=== PATIENT | female | born 1935 | race Caucasian/White ===

== ENCOUNTER 2017-02-08 22:54 | Emergency (ER) | payer OTHER ==
[~2017-02-08] VITALS: Ht 157.5 cm; Wt 89.5 kg
[~2017-02-08 22:54] MED LIST: ACET-1325 PO; ASPI325T PO; ATRO1SOL13 OPR; CIME1TAB7 PO; KETO0.5S33 OPR; LORA-741 PO; MCR/40125 PO; PRED1SUS3 OPR; TIMO0.2528 OPR; [UNRECOGNIZED DRUG - CODE] OPR
[2017-02-08 23:00] VITALS: TEMP 36.8; Ht 157.5 cm; Wt 89.5 kg
[2017-02-08] MEDS ORDERED: HYDROCODONE/ACETAMOPHEN 5/325MG TAB PO STA (23:21)
--- NOTE | 2017-02-08 23:30 | EMERGENCY ROOM VISIT NOTE ---
History Report prepared by Kelvin: Marianna Malone Under the Supervision of: Dr. Julio César Cuellar D.O. First contact with patient: 23:15 Chief Complaint: LEG PAIN,LEG INJURY Stated Complaint: LEFT LEG PAIN AND SWELLING History of Present Illness The patient is an 81 year old female who presents to the Emergency Room with complaints of an episode of left leg pain starting a week ago. The patient states that she came to the ED because the pain was getting worse. She reports that she noticed it was swelling as well. She states that she thought it was because she was walking so much recently. She notes that it is worse when walking. She reports that she took Aleve with no relief. She denies ever having a blood clot. The patient currently rates her pain as a 6/10 in severity. Source of History: patient Onset: a week ago Position: leg (left) Symptom Intensity: 6/10 Timing: other (episode) Modifying Factors (Worsening): other (walking) Note: The patient complains of leg swelling. The patient denies ever having a blood clot. Review of Systems See HPI for pertinent positives and negatives. A total of ten systems were reviewed and were otherwise negative. Past Medical & Surgical Medical Problems: (1) Cataract (2) Left cataract (3) Right cataract Family History Patient reports no known family medical history. Social History Smoking Status: Never Smoker Marital Status: Housing Status: lives alone Occupation Status: retired Current/Historical Medications Scheduled PRN Aspirin Buffered (Joe Carb-Mag (Bufferin), 1 TAB PO DIRECTED PRN for Pain Cimetidine (Tagamet Hb), 200 MG PO BID PRN for Indigestion Hydrocodone/Acetaminophen 5MG/325MG ([place] 5MG/325MG), 1 TABLET PO Q6H PRN for Pain Naproxen (Aleve), 220 MG PO DIRECTED PRN for Pain Allergies Coded Allergies: No Known Allergies (Unverified , 02/09/17) Physical Exam Vital Signs Date Time Temp Pulse Resp B/P (MAP) Pulse Ox O2 Delivery O2 Flow Rate FiO2 02/09/17 00:42 78 18 236/136 98 Room Air 02/08/17 23:00 36.8 86 16 229/101 98 Room Air Physical Exam GENERAL: Awake, alert, well-appearing, in no distress HENT: Normocephalic, atraumatic. Oropharynx unremarkable. Opacified right eye. EYES: Normal conjunctiva. Sclera non-icteric. NECK: Supple. No nuchal rigidity. FROM. No JVD. RESPIRATORY: Clear to auscultation. CARDIAC: Regular rate, normal rhythm. Extremities warm and well perfused. Pulses equal. ABDOMEN: Soft, non-distended. No tenderness to palpation. No rebound or guarding. No masses. RECTAL: Deferred. MUSCULOSKELETAL: Chest examination reveals no tenderness. The back is symmetrical on inspection without obvious abnormality. There is no CVA tenderness to palpation. No joint edema. LOWER EXTREMITIES: Calves are equal size bilaterally and non-tender. No edema. No discoloration. LLE has mild tenderness. No significant swelling. Neurovascularly intact distally. NEURO: Normal sensorium. No sensory or motor deficits noted. SKIN: No rash or jaundice noted. Medical Decision & Procedures ER Provider Diagnostic Interpretation: US VENOUS LEFT LOWER EXTREMITY: Findings: No sonographic evidence for DVT within the left lower extremity. Radiologist: Renato Booth M.D. Study ready at 00:30 and initial results transmitted at 00:52. Medications Administered Medications (Trade) Dose Ordered Sig/Adriel Route Start Time Stop Time Status Last Admin Dose Admin Acetaminophen/ Hydrocodone Bitart ([place] 5/325 Tab) 1 tab NOW STAT PO 02/08/17 23:21 02/08/17 23:22 DC 02/09/17 00:41 1 TAB ED Course 2316: The patient was evaluated in room A10. A complete history and physical exam was performed. 2321: Ordered [place] 5/325 Tab 1 tab PO. 0055: I reevaluated the patient. Discussed results and discharge instructions: She verbalized understanding and agreement. The patient is ready for discharge. Medical Decision Differential diagnoses include sprain, strain, muscle cramp, DVT. Medication Reconcilliation Current Medication List: was personally reviewed by me Blood Pressure Screening Patient's blood pressure: Elevated blood pressure Blood pressure disposition: Referred to PCP Impression Primary Impression: Pain of left calf Scribe Attestation The scribe's documentation has been prepared under my direction and personally reviewed by me in its entirety. I confirm that the note above accurately reflects all work, treatment, procedures, and medical decision making performed by me. Departure Information Dispostion Home / Self-Care Prescriptions Hydrocodone/Acetaminophen 5MG/325MG ([place] 5MG/325MG) Tab 1 TABLET PO Q6H Y for Pain, #14 TAB Prov: Julio César Cuellar, DO 02/09/17 Referrals No Doctor, Assigned (PCP) Patient Instructions ED HTN Established, ED Muscle Pain Leg Cramps, My [facility]
[2017-02-09] MEDS ORDERED: NAPR1TAB9 PO (00:20)
[2017-02-09] MEDS ORDERED: HYDR-5688 PO (01:07)
[2017-02-09 01:28] VITALS: BP 240/94; PULSE 68; O2SAT 96
--- NOTE | 2017-02-09 05:50 | DIAGNOSTIC IMAGING REPORT ---
LEFT VENOUS DOPP LOWER EXT UNILAT CLINICAL HISTORY: pain pain. Edema. TECHNIQUE: Venous Doppler COMPARISON STUDY: None FINDINGS: Normal study IMPRESSION: Normal study The above report was generated using voice recognition software. It may contain grammatical, syntax or spelling errors. Electronically signed by: Cody Kaufman M.D. 02/09/2017 5:49 AM Dictated Date/Time: 02/09/2017 5:48 AM
== END 2017-02-09 01:35 | disposition home or self-care (01) ==
LOC: C.EDB 22:55 → C.EDA 02-09 01:35
DX: M79.662 Pain in left lower leg (principal); H26.9 Unspecified cataract

== ENCOUNTER 2017-02-14 11:29 | Emergency (ER) | payer OTHER ==
[~2017-02-14] VITALS: Ht 157.5 cm; Wt 88.2 kg
[~2017-02-14 11:29] MED LIST changes: -ACET-1325 PO; -ATRO1SOL13 OPR; +HYDR-5688 PO; -KETO0.5S33 OPR; -LORA-741 PO; -MCR/40125 PO; +NAPR1TAB9 PO; -PRED1SUS3 OPR; -TIMO0.2528 OPR; -[UNRECOGNIZED DRUG - CODE] OPR
[2017-02-14 11:35] VITALS: TEMP 37; Ht 157.5 cm; Wt 88.2 kg
[2017-02-14] MEDS ORDERED: OXYCODONE HCL IR 5 MG TAB (IMMEDIATE RELEASE) PO STA (12:05)
--- NOTE | 2017-02-14 12:41 | EMERGENCY ROOM VISIT NOTE ---
ED Visit Note First contact with patient: 11:50 The patient was seen and examined with Ulises Bo PA-C. I agree with the history, physical and findings. Please see the note for disposition and details.
--- NOTE | 2017-02-14 12:45 | DIAGNOSTIC IMAGING REPORT ---
LEFT FEMUR 4 VIEWS HISTORY: L posterior thigh pain COMPARISON: None. FINDINGS: There is no fracture or dislocation. No significant knee effusion. Medial superficial varicosities within the thigh. No radiopaque foreign bodies. Mild vascular calcifications. Calcification within the deep pelvis favors a uterine fibroid. IMPRESSION: No fractures within the left femur. Electronically signed by: Octaviano Duarte M.D. 02/14/2017 12:44 PM Dictated Date/Time: 02/14/2017 12:42 PM
[2017-02-14] MEDS ORDERED: AMLODIPINE BESYLATE 5 MG TAB PO ONE (14:15)
--- NOTE | 2017-02-14 14:32 | DIAGNOSTIC IMAGING REPORT ---
LEFT LOWER EXTREMITY VENOUS DOPPLER HISTORY: LEFT THIGH PAIN - R/O DVT COMPARISON STUDY: None. FINDINGS: There is normal compressibility, flow, and augmentation within the left lower extremity deep venous system. IMPRESSION: No DVT within the left lower extremity. Electronically signed by: Octaviano Duarte M.D. 02/14/2017 2:31 PM Dictated Date/Time: 02/14/2017 2:30 PM
[2017-02-14 14:50] VITALS: BP 200/80; PULSE 71; O2SAT 98
[2017-02-14] MEDS ORDERED: AMLO-114 PO (14:53)
[2017-02-14] MEDS ORDERED: OXYC1TAB3 PO (14:53)
--- NOTE | 2017-02-14 16:27 | EMERGENCY ROOM VISIT NOTE ---
History First contact with patient: 11:50 Chief Complaint: PAIN (GENERALIZED) Stated Complaint: L-KNEE/LEG PAIN History of Present Illness The patient is a 81 year old female who presents to the Emergency Room with complaints of left posterior thigh pain for the past 3 weeks. The patient reports that she was walking extensively at a yard sale that weekend. She has had persistent pain since that time. She was just here on 02/08/17 and had an ultrasound showing no evidence for deep vein thrombosis. The patient now rates her discomfort a 4 out of 10, worse into an 8 out of 10 with ambulation. She denies any paresthesias or numbness of the left extremity. She reports the area of swelling behind her right thigh that is tender to palpation. She denies any local contusion or injury to that site. Review of Systems 10 system review was performed and was negative except for pertinent positives and negatives as indicated in history of present illness Past Medical/Surgical History Medical Problems: (1) Cataract (2) Left cataract (3) Right cataract Family History Patient reports no known family medical history. Social History Smoking Status: Never Smoker Marital Status: Housing Status: lives alone Occupation Status: retired Current/Historical Medications Scheduled Amlodipine (Norvasc), 10 MG PO DAILY Scheduled PRN Aspirin Buffered (Joe Carb-Mag (Bufferin), 1 TAB PO DIRECTED PRN for Pain Cimetidine (Tagamet Hb), 200 MG PO BID PRN for Indigestion Hydrocodone/Acetaminophen 5MG/325MG ([place] 5MG/325MG), 1 TABLET PO Q6H PRN for Pain Naproxen (Aleve), 220 MG PO DIRECTED PRN for Pain Oxycodone Ir (Roxicodone Ir), 1-2 TAB PO Q4H PRN for Pain Physical Exam Vital Signs Date Time Temp Pulse Resp B/P (MAP) Pulse Ox O2 Delivery O2 Flow Rate FiO2 02/14/17 14:50 71 18 200/80 98 Room Air 02/14/17 13:09 72 18 148/84 98 Room Air 02/14/17 11:35 37.0 92 20 208/161 99 Room Air Physical Exam CONSTITUTIONAL: Healthy and well nourished. Alert and oriented X 3 with positive affect. Patient does not appear in any acute distress. HEENT: Normocephalic, atraumatic. Pupils equal, round and reactive. No conjunctival injection or scleral icterus. Right eye is opacified. NECK: Full active range of motion without discomfort. RESPIRATORY: Clear to auscultation bilaterally with no wheezing, crackles, rhonchi or stridor. CARDIOVASCULAR: Regular rate and rhythm with no murmurs, rubs or gallops. GASTROINTESTINAL: Bowel sounds present in all quadrants. Soft and nontender to palpation. MUSCULOSKELETAL: Examination of the left distal and posteromedial thigh shows a very prominent varicose vein without overriding erythema or ecchymosis. It is tender to palpation. She has no tenderness to palpation of the hamstrings. Range of motion of the knee does not worsen her discomfort. No joint effusion of the knee noted. Negative logroll. Negative straight leg raise. Pedal pulses are intact. INTEGUMENTARY: No rash or other significant dermatologic conditions noted. NEUROLOGIC: No focal neurologic deficits noted. Lower extremity is sensory intact. Medical Decision & Procedures ER Provider Diagnostic Interpretation: My interpretation of left femur x-rays does not show any underlying bony lesions or fracture. Radiologist report is as follows: LEFT FEMUR 4 VIEWS HISTORY: L posterior thigh pain COMPARISON: None. FINDINGS: There is no fracture or dislocation. No significant knee effusion. Medial superficial varicosities within the thigh. No radiopaque foreign bodies. Mild vascular calcifications. Calcification within the deep pelvis favors a uterine fibroid. IMPRESSION: No fractures within the left femur. Medications Administered Medications (Trade) Dose Ordered Sig/Adriel Route Start Time Stop Time Status Last Admin Dose Admin Oxycodone HCl (Roxicodone Immediate Rel Tab) 5 mg NOW STAT PO 02/14/17 12:05 02/14/17 12:07 DC 02/14/17 12:28 5 MG Amlodipine Besylate (Norvasc Tab) 10 mg NOW ONCE PO 02/14/17 14:15 02/14/17 14:16 DC 02/14/17 14:13 10 MG ED Course Patient history and physical exam were performed. Nurse's notes were reviewed. Vital signs were reviewed, showing a blood pressure of 208/161. I also reviewed documentation from the patient's last visit, showing that she also had a significantly elevated blood pressure of 236/136. She was instructed to follow-up with her family doctor for further blood pressure management as the patient does have a history of hypertension. The patient reports that she has not seen her family doctor in 3 months, nor has she taken any blood pressure medication that she ran out. When asked why she has not contacted her family doctor, she reports that she did not like her family doctor, therefore refused to go back. I offered to provide her with a prescription for hydrochlorothiazide, which is what she was taking/prescribed by her prior family doctor. She reports that the medicine did not do anything for her blood pressure, and declined this prescription. She has not tried to find another family doctor. Supposedly the patient went to the [facility] walk-in clinic since her last ER visit, and he told her to come to the emergency department for blood pressure treatment. The patient was transported here today via BLS ambulance, and reports that she lives alone and does not have a way to get back home. X-rays of the left femur were normal. The patient was advised that her pain is likely from a varicose vein. We know that her venous Doppler from one week ago did not show any underlying deep vein thrombosis. She was encouraged to apply heat and an Cedrick wrap to the thigh. I had our special education case manager talk with the patient regarding finding a PCP. The patient elected follow-up with Dr. Wise' s office. Our special education case manager will call the office tomorrow to set up an appointment. The correctional case records supervisor was also able to contact her sister to come apple picker the patient. The patient was also seen by Dr. Danielle, ED attending physician, who agrees with workup and plan of care. He did suggest repeating a venous ultrasound of the leg. When the sister got here, I spoke with her after receiving consent from the patient. I explained that we were going to repeat the ultrasound. The sister reported that she would go to the cafeteria and will be back in one hour. The patient then started to refuse ultrasound studies, stating that she wanted to leave to get her sister home because she should not be driving. Her nurse then reported that they were ready for her in ultrasound, and the patient reluctantly agreed to have an ultrasound performed. The ultrasound was normal. The patient was administered amlodipine 10 mg at the recommendation of Dr. Danielle, and will be provided a prescription for amlodipine daily 14 days. She also requested something for the pain, and was provided a prescription for OxyIR 5 mg. Her sales and support center agent will call her tomorrow after speaking with Dr. Wise 's office to schedule an appointment. She was instructed to return to the emergency department for any further concerns. The patient was happy with plan of care, voiced understanding of all discharge instructions, and rated her pain a 3 out of 10 at the conclusion of my exam. Medical Decision Patient's clinical exam finding is consistent with a varicosity that is tender to palpation. She has now had 2 normal venous ultrasound showing no evidence for underlying deep vein thrombosis. The patient has no clinical exam findings to suggest lumbar radiculitis. X-rays does not show any underlying bony lesions or fracture. I am most concerned about her hypertension. The patient will be started on amlodipine 10 mg daily, and has agreed to follow-up with Dr. Wise's office for further management. [facility] Drug Monitoring Program Search Results: patient reviewed within database, no issues identified Blood Pressure Screening Patient's blood pressure: Elevated blood pressure Blood pressure disposition: Referred to PCP Impression Primary Impression: Left posterior thigh varicosity Additional Impression: Hypertension Departure Information Prescriptions Oxycodone Ir (Roxicodone Ir) 5 Mg Tab 1-2 TAB PO Q4H Y for Pain, #24 TAB For Initial Treatment Prov: Rich Bo PA 02/14/17 Amlodipine (Norvasc) 10 Mg Tab 10 MG PO DAILY for 14 Days, #14 TAB Prov: Rich Bo PA 02/14/17 Referrals No Doctor, Assigned (PCP) Makenna Maradiaga PA-C Forms WORK / SCHOOL INSTRUCTIONS, HOME CARE DOCUMENTATION FORM, IMPORTANT VISIT INFORMATION Patient Instructions My [facility] Problem Qualifiers Additional Impression: Hypertension Hypertension type: essential hypertension Qualified Codes: I10 - Essential ( primary) hypertension
== END 2017-02-14 15:08 | disposition home or self-care (01) ==
LOC: EDBD 11:29 → C.EDC 11:32
DX: I83.812 Varicose veins of left lower extremity with pain (principal); I10 Essential (primary) hypertension; H26.9 Unspecified cataract

== ENCOUNTER 2018-12-26 15:48 | Inpatient (IN) ==
[2018-12-26] MEDS ORDERED: LISINOPRIL 20 MG TAB PO STA (16:51)
[2018-12-26] MEDS ORDERED: AMOXICILLIN/CLAVULANATE 875 MG TAB PO ONE (16:51)
[2018-12-26 17:23] LABS: Partial Thromboplastin Time 26.2 Seconds (21.0-31.0); Prothrombin Time 10.2 Seconds (9.0-12.0)
[2018-12-26 17:27] LABS: Albumin Level 4.1 gm/dl (3.4-5.0); BUN Creatinine Ratio 12.9 (10-20); Calcium 9.7 mg/dl (8.5-10.1); Creatinine Clr Calc Pharmacy 53.2 ml/min; Est GFR (Non-African American) 64.7; Magnesium 2.1 mg/dl (1.8-2.4); Potassium 3.7 mmol/L (3.5-5.1)
[2018-12-26] MEDS ORDERED: SODIUM CHLORIDE 0.65% NA SOLN 45 ML (OCEAN) ONE (17:40)
[2018-12-26 17:45] LABS: Basophils # (auto) 0.02 K/uL (0-0.2); Basophils % (auto) 0.3 %; Eosinophils % (auto) 2.5 %; Hematocrit (blood only) 43.4 % (37-47); Hemoglobin 15.2 g/dL (12.0-16.0); Immature Granulocytes # (auto) 0.01 K/uL (0.00-0.02); Immature Granulocytes % (auto) 0.1 %; Lymphocytes # (auto) 2.35 K/uL (1.2-3.4); Lymphocytes % (auto) 29.7 %; Mean Corpuscular Volume 84.9 fL (80-100); Mean Platelet Volume 10.3 fL (7.4-10.4); Monocytes # (auto) 0.63 K/uL (0.11-0.59); Neutrophils # (auto) 4.71 K/uL (1.4-6.5); Neutrophils % (auto) 59.4 %; Platelet Count 222 K/uL (130-400); RDW Coefficient of Variation 14.1 % (11.5-14.5); RDW Standard Deviation 43.5 fL (36.4-46.3); Red Blood Count 5.11 M/uL (4.2-5.4); White Blood Count 7.92 K/uL (4.8-10.8)
[2018-12-26 17:47] LABS: Albumin Globulin Ratio 0.9 (0.9-2); Bilirubin,Total 0.5 mg/dl (0.2-1); Globulin 4.6 gm/dl (2.5-4.0); Total Protein 8.7 gm/dl (6.4-8.2); Troponin I 0.063 ng/ml (0-0.045)
[2018-12-26] MEDS ORDERED: ASPIRIN CHEW 324 MG PO STA (17:55)
[2018-12-26 18:40] LABS: Creatine Kinase MB 1.5 ng/ml (0.5-3.6)
--- NOTE | 2018-12-26 20:10 | History & Physical Report ---
Date of Service December 26, 2018 Assessment & Plan (1) Hypertensive urgency: Has been off of medications x2 years Pt declined CT head in the ED Trop with mild elevation, likely demand ischemia RBBB on EKG Discusssed this with pt. She is agreeable to have another trop checked and to undergo ECHO. CK neg making [place] less likely Nicardipine drip in the ED, will continue Will need PCP for f/u (2) DVT prophylaxis: SCDs History of Present Illness Primary Care Provider: NO PCP 83 y/o F who came to the ED for elevated BP. Pt states that she goes to a [facility] where they check BP periodically. She states it was checked today and the man who checked it was very concerned about her BP reading. She states she does not know what the number were "because I don't go looking for trouble, so I don't care". She states that he advised her to go to the ED due to risk of stroke at that time but she declined. She states that after she got home, she became nervous about this because she lives alone and did not want to have a stroke with no one there. She states that her BP gets checked at the [facility] about once a month, but "I never listen to the numbers because I don't go looking for trouble". She thinks it may have been high in the past, but it was not as high as today. Pt states that she is supposed to be on medications for her BP, but stopped them about 2 years ago because "if it kills me, it kills me". She does not have a PCP. She states she has never been on medication for anything other than her BP. Pt states she has felt fine. No lightheadedness/dizziness. No falls. She has baseline vision issues due to some sort of complication from a R sided cataract removal, but this is no different than usual. Pt denies fever, SOB, chest pain, abd pain, n/v/c/d, LE pain or swelling. She has been eating without issue. Pt is a without children. She does have a sister who is 89 y/o, but she has many health issues herself. Pt refused CT head in the ED. "My head is fine. I don't want to look for trouble." Allergies Allergy/AdvReac Type Severity Reaction Status Date / Time No Known Allergies Allergy Unverified 12/26/18 17:39 Home Medications Home Medications Medication Instructions Recorded Confirmed Type aspirin 650 mg PO UD PRN 12/26/18 12/26/18 History cimetidine [Tagamet HB] 200 mg PO QID PRN 12/26/18 12/26/18 History vitamin E 400 unit PO DAILY 12/26/18 12/26/18 History Past Med/Surg History Medical History Hypertension (Chronic) Social History Preferred Language: Luxembourgish Feels Safe at Home: Yes Smoking Status: Never smoker Hx Alcohol Use: No Hx Substance Use: No Review of Systems Review of Systems: Pertinent positives and negatives reviewed in HPI--all others negative Physical Exam Constitutional: WD/WN, vitals as above Eyes: R eye is cloudy with decreased eye movements Neck: normal visual inspection and trachea midline Respiratory: normal respiratory effort, lungs clear to auscultation Cardiovascular: Rate/Rhythm: regular rate and regular rhythm Gastrointestinal (Abdomen): Inspection/Auscultation: abdomen not distended Percussion/Palpation: abdomen soft; abdomen nontender Musculoskeletal: Head/Neck/Chest: normocephalic and head atraumatic negative for edema, peripheral pulses intact Skin: no rashes, warm and dry Neurologic: awake; not confused Speech / Cognition: normal speech Psychiatric: Orientation: oriented x 3 and cooperative Eye Contact: good eye contact Pt is very blunt and straightforward in her discussion Results & Data Vital Signs (Past 12 Hours) Vital Signs Temp Pulse Pulse Resp BP BP Pulse Ox 12/26/18 19:45 75 20 139/76 96 12/26/18 19:36 78 18 202/137 H 98 12/26/18 19:17 76 18 173/81 H 97 12/26/18 18:58 74 20 210/106 H 97 12/26/18 18:25 79 18 233/114 H 12/26/18 17:31 74 15 249/127 H 12/26/18 17:30 74 24 12/26/18 17:15 73 16 12/26/18 17:00 97 H 26 H 12/26/18 16:49 86 19 12/26/18 16:43 88 19 12/26/18 16:10 37.4 C 88 20 224/129 H 98 ECG Findings: + RBBB Code Status & VTE Plan Code Status Full cardiac code, DNI--she wants no mechanical intervention, even short term intubation. "If I , I ." VTE Prophylaxis Plan VTE Prophylaxis will be ordered: Yes PG Care Time/CCT Total # of Minutes Spent Total Time Spent with Patient: Total time spent is greater than 50% in coordination of care (as documented) at patient's floor/unit and/or counseling patient:
[2018-12-26] MEDS ORDERED: ACETAMINOPHEN 325 MG TAB PO PRN (20:46)
[2018-12-26] MEDS ORDERED: ONDANSETRON INJ 2 MG/ML 2 ML VIAL IV PRN (20:46)
[2018-12-26] MEDS ORDERED: ASPIRIN 325 MG ECTAB PO PRN (20:46)
[2018-12-26] MEDS ORDERED: FAMOTIDINE 20 MG TAB PO PRN (20:46)
[2018-12-26] MEDS ORDERED: MAGNESIUM HYDROXIDE SUSP 30 ML UDC PO PRN (20:46)
--- NOTE | 2018-12-26 23:42 | Emergency Department Note ---
Entered by Venecia oPnd acting as a scribe for Juan Zambrano MD History of Present Illness General Chief complaint: Hypertension Stated complaint: HIGH BLOOD PRESSURE, REFERRED BY DR Alatorre Seen by Provider: 12/26/18 16:38 Source: patient History of Present Illness Provider complaint: hypertension Onset (ago): hour(s) ([employer]) Radiation: non-radiation Relieved By: + none Exacerbated By: + none Associated symptoms: + other (+dizziness); no headaches The patient is a 83 year old female who presents to the Emergency Room with co mplaints of hypertension. The patient states that she thinks she has a sinus infection. She reports that she has been dizzy on and off for the past several days, but is not currently. The patient states that she is concerned that she will have a stroke. The patient denies any headache. She notes that she lives alone. She states that she was on medication for her hypertension, but she states that she �quit�. The patient states that she was in the in ED recently for hypertension and did not take her hypertension medication after she was discharged. Home Medications Home Medications Medication Instructions Recorded Confirmed Type aspirin 650 mg PO UD PRN 12/26/18 12/26/18 History cimetidine [Tagamet HB] 200 mg PO QID PRN 12/26/18 12/26/18 History vitamin E 400 unit PO DAILY 12/26/18 12/26/18 History Allergies Allergy/AdvReac Type Severity Reaction Status Date / Time No Known Allergies Allergy Unverified 12/26/18 17:39 Past Med/Surg History Medical History Hypertension (Chronic) Social History Preferred Language: Puerto Rican Communication Ability: Effective Beliefs That Will Affect Care: None Current Living Situation: Alone Other Information That Helps Us Care for You: No Feels Safe at Home: Yes Smoking Status: Never smoker Hx Alcohol Use: No Hx Substance Use: No Review of Systems See HPI for pertinent positives & negatives. and A total of 10 systems reviewed and were otherwise negative Physical Exam Vital Signs Vital Signs - 24 hr 12/26/18 17:15 12/26/18 17:30 12/26/18 17:31 Pulse Rate 73 74 74 Pulse Rate [Finger] Respiratory Rate 16 24 15 Respiratory Effort / Characteristics Respiratory Depth Blood Pressure 249/127 H Blood Pressure [Left Arm] Blood Pressure Mean 167 Blood Pressure Mean [Left Arm] Pulse Oximetry Oxygen Delivery Method 12/26/18 18:25 12/26/18 18:58 12/26/18 19:17 Pulse Rate Pulse Rate [Finger] 79 74 76 Respiratory Rate 18 20 18 Respiratory Effort / Characteristics Non-Labored Respiratory Depth Normal Blood Pressure Blood Pressure [Left Arm] 233/114 H 210/106 H 173/81 H Blood Pressure Mean Blood Pressure Mean [Left Arm] 153 140 111 Pulse Oximetry 97 97 Oxygen Delivery Method Room Air Room Air 12/26/18 19:36 12/26/18 19:45 Pulse Rate Pulse Rate [Finger] 78 75 Respiratory Rate 18 20 Respiratory Effort / Characteristics Respiratory Depth Blood Pressure Blood Pressure [Left Arm] 202/137 H 139/76 Blood Pressure Mean Blood Pressure Mean [Left Arm] 158 97 Pulse Oximetry 98 96 Oxygen Delivery Method Room Air Room Air GENERAL: Awake, alert, well-appearing, in no acute distress HENT: Normocephalic, atraumatic. Oropharynx unremarkable. EYES: Normal conjunctiva. Sclera non-icteric. NECK: Supple. No nuchal rigidity. FROM. No JVD. RESPIRATORY: Clear to auscultation. CARDIAC: Regular rate, normal rhythm. Extremities warm and well perfused. Pulses equal. ABDOMEN: Soft, non-distended. No tenderness to palpation. No rebound or guarding. No masses. RECTAL: Deferred. MUSCULOSKELETAL: Chest examination reveals no tenderness. The back is symmetrical on inspection without obvious abnormality. There is no CVA tenderness to palpation. No joint edema. LOWER EXTREMITIES: Calves are equal size bilaterally and non-tender. No edema. No discoloration. NEURO: Normal sensorium. No sensory or motor deficits noted. SKIN: No rash or jaundice noted. Course 1641: The patient was evaluated in room A11A, and a complete history and physical examination were performed. 4: I reevaluated and updated the patient. She states that she does not want to stay here overnight and denies a CAT scan. 1950: I reviewed the patient's case with Dr. Askew- [facility] Hospitalist. She will evaluate the patient for further management Consultations Consultation #1: Dr. Waddell [facility] Hospitalist Time: 19:50 Administered Medications Labetalol HCl (Normodyne) 10 mg IV Q6H PRN PRN Reason: Blood Pressure - High Stop: 01/26/19 03:34 Last Admin: 12/27/18 04:13 Dose: 10 mg Documented by: [id number] Cosigned by: [id number] Lisinopril (Zestril) 10 mg PO QAM [facility] Stop: 01/26/19 08:59 Last Admin: 12/27/18 09:21 Dose: 10 mg Documented by: [id number] Vitamin E (Vitamin E) 400 units PO DAILY GERA Stop: 01/26/19 08:59 Last Admin: 12/27/18 08:30 Dose: 400 units Documented by: [id number] Discontinued Medications Amlodipine Besylate (Norvasc) 2.5 mg PO 0900 ONE Stop: 12/27/18 09:01 Last Admin: 12/27/18 09:20 Dose: 2.5 mg Documented by: [id number] Amoxicillin/Clavulanate Potassium (Augmentin 875mg) 1 tab PO NOW ONE Stop: 12/26/18 16:52 Last Admin: 12/26/18 16:56 Dose: 1 tab Documented by: [id number] Aspirin (Aspirin) 324 mg PO NOW STA Stop: 12/26/18 17:56 Last Admin: 12/26/18 18:02 Dose: 324 mg Documented by: [id number] Nicardipine HCl 25 mg/ Sodium (Chloride) 250 mls @ 50 mls/hr IV .Q5H [facility]; Protocol Stop: 01/25/19 16:44 Last Admin: 12/26/18 17:04 Dose: Not Given Documented by: [id number] Nicardipine HCl 25 mg/ Sodium (Chloride) 250 mls @ 50 mls/hr IV .Q5H [facility]; Pro tocol Stop: 01/25/19 17:59 Last Titration: 12/26/18 21:25 Dose: 0 mg/hr, 0 mls/hr Documented by: [id number] Titration: 12/26/18 18:55 Dose: 7.5 mg/hr, 75 mls/hr Documented by: [id number] Titration: 12/26/18 18:55 Dose: 10 mg/hr, 100 mls/hr Documented by: [id number] Admin: 12/26/18 18:11 Dose: 5 mg/hr, 50 mls/hr Documented by: [id number] Cosigned by: [id number] Lisinopril (Zestril) 20 mg PO NOW STA Stop: 12/26/18 16:52 Last Admin: 12/26/18 16:56 Dose: 20 mg Documented by: [id number] Miscellaneous (Order Awaiting Action) 1 ea N/A QS GERA Stop: 01/26/19 00:00 Last Admin: 12/27/18 01:20 Dose: Not Given Documented by: [id number] Sodium Chloride (Sullivan Nasal) 2 sprays NA NOW ONE Stop: 12/26/18 17:41 Last Admin: 12/26/18 18:55 Dose: Not Given Documented by: [id number] Medical Decision Making Differential Diagnosis Differential diagnosis: Etiologies such as benign hypertension, hypertensive emergency, cardiovascular pathology, pheochromocytoma, electrolyte abnormality, renal disease, endorgan damage, as well as others were entertained. Medical Records Attestation: I reviewed the patient's medical records. Home Medications Current Medication List: was personally reviewed by me Laboratory Data Attestation: I reviewed the patient's lab results. Result diagrams: 12/26/18 17:01 12/26/18 17:01 Lab Results 12/26/18 12/26/18 12/26/18 Range/Units 17:01 17:01 17:01 WBC 7.92 (4.8-10.8) K/uL RBC 5.11 (4.2-5.4) M/uL Hgb 15.2 (12.0-16.0) g/dL Hct 43.4 (37-47) % MCV 84.9 (80-100) fL MCH 29.7 (25-34) pg MCHC 35.0 (32-36) g/dL RDW Std Deviation 43.5 (36.4-46.3) fL RDW Coeff of Camille 14.1 (11.5-14.5) % Plt Count 222 (130-400) K/uL MPV 10.3 (7.4-10.4) fL Immature Gran % (Auto) 0.1 % Neut % (Auto) 59.4 % Lymph % (Auto) 29.7 % [place] % (Auto) 8.0 % Eos % (Auto) 2.5 % Baso % (Auto) 0.3 % Immature Gran # (Auto) 0.01 (0.00-0.02) K/uL Neut # (Auto) 4.71 (1.4-6.5) K/uL Lymph # (Auto) 2.35 (1.2-3.4) K/uL [place] # (Auto) 0.63 H (0.11-0.59) K/uL Eos # (Auto) 0.20 (0-0.5) K/uL Baso # (Auto) 0.02 (0-0.2) K/uL PT 10.2 (9.0-12.0) Seconds INR 1.0 (0.9-1.1) APTT 26.2 (21.0-31.0) Seconds PTT Ratio 1.0 Sodium 142 (136-145) mmol/L Potassium 3.7 (3.5-5.1) mmol/L Chloride 109 H (98-107) mmol/L Carbon Dioxide 26 (21-32) mmol/L Anion Gap 7.0 (3-11) BUN 11 (7-18) mg/dl Creatinine 0.84 (0.6-1.2) mg/dl Est Cr Clr Drug Dosing 53.2 ml/min Est GFR ( Amer) 75.0 Est GFR (Non-Af Amer) 64.7 BUN/Creatinine Ratio 12.9 (10-20) Glucose 122 H (70-99) mg/dl Calcium 9.7 (8.5-10.1) mg/dl Magnesium 2.1 (1.8-2.4) mg/dl Total Bilirubin 0.5 (0.2-1) mg/dl AST 52 H (15-37) U/L ALT 44 (12-78) U/L Alkaline Phosphatase 86 (45-117) U/L Total Creatine Kinase (26-192) U/L CK-MB (CK-2) (0.5-3.6) ng/ml CK/CKMB % Calc (0-3.0) Troponin I 0.063 H* (0-0.045) ng/ml Total Protein 8.7 H (6.4-8.2) gm/dl Albumin 4.1 (3.4-5.0) gm/dl Globulin 4.6 H (2.5-4.0) gm/dl Albumin/Globulin Ratio 0.9 (0.9-2) 12/26/18 Range/Units 17:01 WBC (4.8-10.8) K/uL RBC (4.2-5.4) M/uL Hgb (12.0-16.0) g/dL Hct (37-47) % MCV (80-100) fL MCH (25-34) pg MCHC (32-36) g/dL RDW Std Deviation (36.4-46.3) fL RDW Coeff of Camille (11.5-14.5) % Plt Count (130-400) K/uL MPV (7.4-10.4) fL Immature Gran % (Auto) % Neut % (Auto) % Lymph % (Auto) % [place] % (Auto) % Eos % (Auto) % Baso % (Auto) % Immature Gran # (Auto) (0.00-0.02) K/uL Neut # (Auto) (1.4-6.5) K/uL Lymph # (Auto) (1.2-3.4) K/uL [place] # (Auto) (0.11-0.59) K/uL Eos # (Auto) (0-0.5) K/uL Baso # (Auto) (0-0.2) K/uL PT (9.0-12.0) Seconds INR (0.9-1.1) APTT (21.0-31.0) Seconds PTT Ratio Sodium (136-145) mmol/L Potassium (3.5-5.1) mmol/L Chloride (98-107) mmol/L Carbon Dioxide (21-32) mmol/L Anion Gap (3-11) BUN (7-18) mg/dl Creatinine (0.6-1.2) mg/dl Est Cr Clr Drug Dosing ml/min Est GFR ( Amer) Est GFR (Non-Af Amer) BUN/Creatinine Ratio (10-20) Glucose (70-99) mg/dl Calcium (8.5-10.1) mg/dl Magnesium (1.8-2.4) mg/dl Total Bilirubin (0.2-1) mg/dl AST (15-37) U/L ALT (12-78) U/L Alkaline Phosphatase (45-117) U/L Total Creatine Kinase 57 (26-192) U/L CK-MB (CK-2) 1.5 (0.5-3.6) ng/ml CK/CKMB % Calc 2.6 (0-3.0) Troponin I (0-0.045) ng/ml Total Protein (6.4-8.2) gm/dl Albumin (3.4-5.0) gm/dl Globulin (2.5-4.0) gm/dl Albumin/Globulin Ratio (0.9-2) ECG Data Attestation: I personally reviewed and interpreted this ECG as follows: Indication: other (hypertension) Rate (beats per minute): 82 Rhythm: normal sinus Findings: + RBBB; no ST depression and no ST elevation Blood Pressure Blood Pressure Findings: Elevated blood pressure MDM Narrative This is an 83-year-old female who presents emergency department with complaints of pressure to her head. The patient is supposed to be taking blood pressure medication however reports that she does not have a primary care doctor and has not taken blood pressure medication in quite some time. She is convinced she has sinusitis. I strongly recommended a CAT scan of the head to rule out intracranial pathology however the patient is adamantly refusing. Because of the high blood pressure as well as her elevated troponin the patient was placed on a nicardipine drip. I did discuss the case with the hospitalist service who agreed to admit the patient. Impression & Plan Hypertensive urgency Critical Care Time Critical Care Time: Yes Total Critical Care Time: 30 I have personally spent 30 minutes of critical care time in the direct management of this patient. This includes bedside care, interpretation of diagnostic studies, and testing, discussion with consultants, patient, and family members, and other required patient management activities. This 30 minutes is in excess of all separately billable procedures. Discharge Plan Visit Data *Final* Discharge Date/Time: 12/26/18 20:35 Chief Complaint: Hypertension Stated Complaint: HIGH BLOOD PRESSURE, REFERRED BY ED Provider: Juan Zambrano Discharge Problem: Hypertensive urgency Patient Disposition: Admitted As Inpatient Discharge Instructions Interventions: ED Discharge Assessment Last Done: 12/26/18 20:35 The scribe's documentation has been prepared under my direction and personally reviewed by me in its entirety. I confirm that the note above accurately reflects all work, treatment, procedures, and medical decision making performed by me.
[2018-12-27] MEDS: LABETALOL HCL IV 5 MG/ML 20ML IV PRN (04:13)
[2018-12-27] MEDS: TOCOPHERYL, DL-ALPHA 400 UNITS CAP PO SCH (08:30)
[2018-12-27] MEDS ORDERED: AMLODIPINE BESYLATE 5 MG TAB PO ONE (09:00)
[2018-12-27] MEDS: LISINOPRIL 10 MG TAB PO SCH (09:21)
[2018-12-27] MEDS ORDERED: HydrALAZINE HCL 20 MG/ML VIAL IV STA (19:34)
[2018-12-27] MEDS ORDERED: AMLODIPINE BESYLATE 5 MG TAB PO SCH (21:00)
--- NOTE | 2018-12-27 22:56 | Hospitalist Progress Note ---
Date of Service December 27, 2018 Assessment & Plan (1) Hypertensive urgency: Has been off of medications x2 years Pt declined CT head in the ED Trop with mild elevation, likely demand ischemia RBBB on EKG Discusssed this with pt. She is agreeable to have another trop checked and to undergo ECHO. CK neg making [place] less likely Nicardipine drip in the ED, will continue Will need PCP for f/u 12/27 Nicardipine stopped Patient asymptomatic. Ordered lisinopril and amlodipine. will monitor. Had extensive discussion with patient regarding importance of continuing her medicine. Explained that the medicine she will bed discharged on will be lifelong. She will need to take it daily without trying to miss a dose. Discussed side effects and risks and benefits of medicine. (2) DVT prophylaxis: SCDs Spent 35 minutes in management of patient. Subjective Patient is a poor historian. She states she stopped taking her medicine because she felt like she did not need them. She no longer follows up with a PCP. She denies any nausea, or vomiting. Review of Systems Review of Systems: All systems reviewed & are unremarkable except as noted in HPI & below Physical Exam Physical Exam: Constitutional: WD/WN, vitals as above Eyes: R eye is cloudy with decreased eye movements Neck: normal visual inspection and trachea midline Respiratory: normal respiratory effort, lungs clear to auscultation Cardiovascular: Rate/Rhythm: regular rate and regular rhythm Gastrointestinal (Abdomen): Inspection/Auscultation: abdomen not distended Percussion/Palpation: abdomen soft; abdomen nontender Musculoskeletal: Head/Neck/Chest: normocephalic and head atraumatic negative for edema, peripheral pulses intact Skin: no rashes, warm and dry Neurologic: awake; not confused Speech / Cognition: normal speech Psychiatric: Orientation: oriented x 3 and cooperative Eye Contact: good eye contact Results & Data Vital Signs (Past 12 Hours) Vital Signs Temp Pulse Resp BP BP Pulse Ox 12/27/18 19:04 37.3 C 67 18 216/79 H 202/104 H 98 12/27/18 15:32 36.7 C 65 16 192/78 H 97 12/27/18 11:14 37.1 C 58 L 16 180/72 H 99 PG Care Time/CCT Total # of Minutes Spent Total Time Spent with Patient: Total time spent is greater than 50% in coordination of care (as documented) at patient's floor/unit and/or counseling patient:
[2018-12-28] MEDS: LABETALOL HCL IV 5 MG/ML 20ML IV PRN (03:57)
[2018-12-28] MEDS ORDERED: LORazepam 0.5 MG/1 ML VIAL IV PRN (05:11)
[2018-12-28] MEDS ORDERED: LORazepam 0.5 MG/1 ML VIAL IV STA (05:18)
[2018-12-28] MEDS: LISINOPRIL 10 MG TAB PO SCH (08:26)
[2018-12-28] MEDS: TOCOPHERYL, DL-ALPHA 400 UNITS CAP PO SCH (08:26)
[2018-12-28] MEDS ORDERED: hydroCHLOROthiazide 25 MG TAB PO STA (08:37)
[2018-12-29] MEDS ORDERED: hydroCHLOROthiazide 25 MG TAB PO SCH (09:00)
--- NOTE | 2019-01-04 20:44 | Discharge Summary ---
Date of Service December 28, 2018 Admission HPI Per Admitting Provider 83 y/o F who came to the ED for elevated BP. Pt states that she goes to a [facility] where they check BP periodically. She states it was checked today and the man who checked it was very concerned about her BP reading. She states she does not know what the number were "because I don't go looking for trouble, so I don't care". She states that he advised her to go to the ED due to risk of stroke at that time but she declined. She states that after she got home, she became nervous about this because she lives alone and did not want to have a stroke with no one there. She states that her BP gets checked at the [facility] about once a month, but "I never listen to the numbers because I don't go looking for trouble". She thinks it may have been high in the past, but it was not as high as today. Pt states that she is supposed to be on medications for her BP, but stopped them about 2 years ago because "if it kills me, it kills me". She does not have a PCP. She states she has never been on medication for anything other than her BP. Pt states she has felt fine. No lightheadedness/dizziness. No falls. She has baseline vision issues due to some sort of complication from a R sided cataract removal, but this is no different than usual. Pt denies fever, SOB, chest pain, abd pain, n/v/c/d, LE pain or swelling. She has been eating without issue. Pt is a without children. She does have a sister who is 89 y/o, but she has many health issues herself. Pt refused CT head in the ED. "My head is fine. I don't want to look for trouble." Principal Diagnosis Malignant hypertension Discharge Exam Constitutional: WD/WN, vitals as above Eyes: R eye is cloudy with decreased eye movements Neck: normal visual inspection and trachea midline Respiratory: normal respiratory effort, lungs clear to auscultation Cardiovascular: Rate/Rhythm: regular rate and regular rhythm Gastrointestinal (Abdomen): Inspection/Auscultation: abdomen not distended Percussion/Palpation: abdomen soft; abdomen nontender Musculoskeletal: Head/Neck/Chest: normocephalic and head atraumatic negative for edema, peripheral pulses intact Skin: no rashes, warm and dry Neurologic: awake; not confused Speech / Cognition: normal speech Psychiatric: Orientation: oriented x 3 and cooperative Eye Contact: good ey e contact Discharge Data Allergies Allergy/AdvReac Type Severity Reaction Status Date / Time No Known Allergies Allergy Unverified 12/26/18 17:39 Consultations 12/26/18 17:56 ED Decision to Admit Stat 12/26/18 20:46 Consult Case Management - Discharge Planning Routine Hospital Course (1) Hypertensive urgency: Has been off of medications x2 years Pt declined CT head in the ED Trop with mild elevation, likely demand ischemia RBBB on EKG Discusssed this with pt. She is agreeable to have another trop checked and to undergo ECHO. CK neg making [place] less likely Nicardipine drip in the ED, will continue Will need PCP for f/u 12/27 Nicardipine stopped Patient asymptomatic. Ordered lisinopril and amlodipine. will monitor. Had extensive discussion with patient regarding importance of continuing her medicine. Explained that the medicine she will bed discharged on will be lifelong. She will need to take it daily without trying to miss a dose. Discussed side effects and risks and benefits of medicine. 12/28 Had multiple discussions with patient. Patient wanted to leave. Her blood pressure was not adequately controlled. Patient though was going to leave AMA. I ordered a script as it would be dangerous for her to go off her Blood presure medicine. However, when I returned to her room, She had left already. (2) DVT prophylaxis: SCDs Total Time Total Time Spent Total Time Spent (In Minutes): 31 Total Time Includes: Examination of the Patient and Discharge Planning Discharge Plan Discharge Items Patient Disposition: Against Medical Advice Reason For Visit: MALIGNANT HTN Discharge Diagnosis: Uncontrolled Essential hypertension/ from not taking medicine Discharge Goals: Decrease discomfort Activity: Resume your previous activity Non-emergency contact: Primary Care Provider Call non-emergency contact if: you have any medication questions Follow-up/Referrals: PCP,NO [Primary Care Provider] - Diet: Regular Addtl Provider Instructions: You were found to have elevated blood pressure. This is likely from the fact that yo stopped taking your blood pressure medicine You need to continue taking these meds lifelong. If you stop abruptly, you can have rebound Hypertension and this could kill you. Prescriptions: New amlodipine [Norvasc] 5 mg Tablet 5 mg PO QPM Qty: 30 RF: 0 lisinopril 10 mg Tablet 10 mg PO QAM Qty: 30 RF: 0 hydrochlorothiazide 25 mg Tablet 12.5 mg PO QAM Qty: 30 RF: 0 metoprolol succinate 25 mg tablet extended release 24 hr 25 mg PO QPM Qty: 30 RF: 0 Continued cimetidine [Tagamet HB] 200 mg Tablet 200 mg PO QID PRN (Reason: Stomach Upset) RF: 0 vitamin E 400 unit Capsule 400 unit PO DAILY RF: 0 Discontinued aspirin 325 mg Tablet 650 mg PO UD PRN (Reason: Pain) RF: 0 Stand-Alone Forms: [facility] Discharge Orders: Discharge Order (Routine); Ordered 12/28/18 Ordered By: Bravo Cruz Admission Data Admit Date/Time: 12/26/18 20:03 Attending Provider: Bravo Cruz Admit Provider: Alessandra Askew Primary Care Provider: PCP,NO Service: Telemetry Other Interventions: Discharge Summary Assessment (RN) Last Done: 12/28/18 11:47 DC Date/Time DO NOT enter until pt leaves facility: 12/28/18 12:13
== END 2018-12-28 12:13 | disposition left against medical advice (07) | DRG 305 ==
LOC: ED 15:48 → SUATTDRO 20:03 → 2S 20:03
DX: I16.0 Hypertensive urgency; I45.10 Unspecified right bundle-branch block; I24.8 Other forms of acute ischemic heart disease

== ENCOUNTER 2019-03-01 11:10 | Inpatient (IN) ==
[2019-03-01] MEDS ORDERED: FAMOTIDINE 20MG IV PUSH 20 MG/5 ML SYR IV STA (11:28)
[2019-03-01] MEDS ORDERED: ACETAMINOPHEN 1,000 MG/100 ML VIAL IV STA (11:28)
[2019-03-01] MEDS ORDERED: SODIUM CHLORIDE 0.9% 500 ML IV SCH (11:30)
--- NOTE | 2019-03-01 11:43 | XRay Report ---
SINGLE VIEW CHEST CLINICAL HISTORY: Atypical chest pain. FINDINGS: An AP, portable, upright chest radiograph is obtained. No prior studies are available for c omparison at the time of dictation. The examination is degraded by portable technique and patient rot ation. The cardiomediastinal silhouette is unremarkable noting atherosclerotic calcification of the thoracic aorta. The lungs and pleural spaces are clear. No pneumothorax is seen. The skeletal structu res are osteopenic. The bony thorax is grossly intact. IMPRESSION: No active disease in the chest. Electronically signed by: Wes Luo M.D. 03/01/2019 11:42 AM
[2019-03-01 12:57] LABS: Hematocrit (blood only) 42.4 % (37-47); Hemoglobin 15.2 g/dL (12.0-16.0); Mean Corpuscular Hgb Conc 35.8 g/dL (32-36); Mean Platelet Volume 10.8 fL (7.4-10.4); Platelet Count 237 K/uL (130-400); RDW Coefficient of Variation 14.3 % (11.5-14.5); RDW Standard Deviation 43.9 fL (36.4-46.3); Red Blood Count 5.05 M/uL (4.2-5.4); White Blood Count 29.01 K/uL (4.8-10.8)
[2019-03-01 13:19] LABS: Basophils # (auto) 0.02 K/uL (0-0.2); Basophils % (auto) 0.1 %; Immature Granulocytes # (auto) 0.14 K/uL (0.00-0.02); Immature Granulocytes % (auto) 0.5 %; Lymphocytes # (auto) 2.02 K/uL (1.2-3.4); Monocytes # (auto) 1.62 K/uL (0.11-0.59); Monocytes % (auto) 5.6 %; Neutrophils # (auto) 25.21 K/uL (1.4-6.5); Neutrophils % (auto) 86.8 %
[2019-03-01 13:21] LABS: Alanine Aminotransferase 42 U/L (12-78); Aspartate Aminotransferase 43 U/L (15-37); BUN Creatinine Ratio 37.7 (10-20); Blood Urea Nitrogen 39 mg/dl (7-18); Calcium 8.9 mg/dl (8.5-10.1); Carbon Dioxide 27 mmol/L (21-32); Chloride 100 mmol/L (98-107); Creatinine Clr Calc Pharmacy 43.2 ml/min; Est GFR (African American) 59.3; Est GFR (Non-African American) 51.2; Glucose 138 mg/dl (70-99); Magnesium 2.9 mg/dl (1.8-2.4); Potassium 3.5 mmol/L (3.5-5.1); Sodium 136 mmol/L (136-145)
[2019-03-01 13:32] LABS: Albumin Globulin Ratio 0.6 (0.9-2); Alkaline Phosphatase 116 U/L (45-117); Bilirubin,Total 0.8 mg/dl (0.2-1); Globulin 4.8 gm/dl (2.5-4.0); Phosphorus 1.8 mg/dl (2.5-4.9); Total Protein 7.8 gm/dl (6.4-8.2); Troponin I < 0.015 ng/ml (0-0.045)
[2019-03-01] MEDS ORDERED: SODIUM CHLORIDE 0.9% 500 ML IV ONE (15:04)
[2019-03-01] MEDS ORDERED: POTASSIUM PHOS 3 MMOL/1 ML INFUSION IV STA (15:27)
[2019-03-01] MEDS ORDERED: POT PHOSPHATE MONOBASIC W/ SOD TAB PO STA (15:27)
[2019-03-01] MEDS ORDERED: POTASSIUM PHOSPHATE 9 MMOL in SODIUM CHLORIDE 0.9% 250 ML IV STA (15:30)
[2019-03-01 15:58] LABS: Appearance Urine Turbid (Clear); Bacteria Urine Automated 1+ (Negative); Blood Urine Negative (Negative); Epithelial Cell Urine Auto >30 /lpf (0-5); Glucose Urine UA Trace (Negative); Ketones Urine Trace (Negative); Leukocyte Esterase Urine 1+ (Negative); Nitrite Urine Positive (Negative); Protein Urine 1+ (Negative); Specific Gravity Urine 1.037 (1.000-1.030); Urobilinogen Urine Negative (Negative); WBC Urine Automated >30 /hpf (0-5)
[2019-03-01 16:00] LABS: Color Urine Amber
[2019-03-01 16:01] LABS: Bilirubin Urine Negative (Negative); Ictotest Urine Negative (Negative)
[2019-03-01] MEDS ORDERED: ONDANSETRON INJ 2 MG/ML 2 ML VIAL IV PRN (16:18)
[2019-03-01] MEDS ORDERED: ACETAMINOPHEN 325 MG TAB PO PRN (16:18)
--- NOTE | 2019-03-01 16:38 | History & Physical Report ---
Date of Service March 01, 2019 Assessment & Plan (1) Gastroenteritis: -Admit to med surg -Differential would include viral gastroenteritis vs food poisoning vs bacterial infection vs small bowel obstruction -CT abdomen with IV contrast ordered, patient is agreeable upon my examination although she initially refused -White count = 29K, left shift -Start on Cipro and Flagyl IV -Check stool culture, stool leukocytes, and c. diff -NSS at 125 ml/hr overnight for hydration -Allow diet after CT read (2) UTI (urinary tract infection): - UA appears infected - Await UCx - Started on IV abx cipro which will likely cover - VSS - NSS for hydration as above (3) Hypertension: - Holding antihypertensives for now: lisinopril/HCTZ, metoprolol succinate, amlodipine (4) Fall: - Pt attempted to get up and walk to the nurses station while in the ER and fell onto her butt, she did not sustain any injury to the head, denies pain - Monitor - PT/OT consults - Walk with assistance of nursing (5) DVT prophylaxis: - teds Disposition: From home, lives alone, likely to be in the hospital for at least 2 days. History of Present Illness Primary Care Provider: NO PCP This is an 83 yo F with PMHx of hypertensive urgency, HTN, obesity with BMI of 34.5, R eye cataract and visual disturbance at baseline, who presents with acute onset of worsening n/v/d x 1 week. She notes being at a picnic about 1 week ago and ate potato salad and beef out of a can, which may have been spoiled, as she vomited shortly after consuming these items. She has not been around any sick contacts otherwise. At the beginning of the week she vomited a few times, but now has more complaints regarding diarrhea. She admits to generalized abdominal soreness. Pt notes intermittent sweats and chills but has not taken her temperature. Her diet has been very poor in the past 3 days, being unable to tolerate anything except for small amounts of water. She was seen at the [facility] by a provider this morning, and was sent to the ER via ambulance. Allergies Allergy/AdvReac Type Severity Reaction Status Date / Time No Known Allergies Allergy Unverified 03/01/19 12:26 Home Medications Home Medications Medication Instructions Recorded Confirmed Type vitamin E 400 unit PO DAILY 12/26/18 03/01/19 History amlodipine [Norvasc] 5 mg PO QPM #30 tab 12/28/18 03/01/19 Rx metoprolol succinate 25 mg PO QPM #30 tab 12/28/18 03/01/19 Rx lisinopril-hydrochlorothiazide 1 tab PO DAILY 03/01/19 03/01/19 History lisinopril-hydrochlorothiazide 1 tab PO DAILY 03/01/19 03/01/19 History lisinopril-hydrochlorothiazide 1 tab PO DAILY 03/01/19 03/01/19 History ondansetron 4 mg PO Q6 PRN 03/01/19 03/01/19 History polyethylene glycol 3350 [Miralax] 1 packet PO DAILY PRN 03/01/19 03/01/19 History sertraline 50 mg PO DAILY 03/01/19 03/01/19 History Past Med/Surg History Social History Preferred Language: Welsh Communication Ability: Effective Beliefs That Will Affect Care: None Current Living Situation: Alone Feels Safe at Home: Yes Smoking Status: Never smoker Hx Alcohol Use: No Hx Substance Use: No Review of Systems Review of Systems: Constitutional: + subjective fever, sweats and chills Eyes: No diplopia, no worsening or blurred vision, + R eye visual disturbance at baseline s/p cataract surg ENT: normal hearing, no trouble swallowing Respiratory: No cough, sputum, dyspnea at rest or on exertion Cardiovascular: No chest pain, tightness or palpitations Abdomen: As per HPI. Musculoskeletal: No joint pain, calf pain, swelling Neurologic: No weakness, numbness/tingling, or balance problems Psychiatric: No anxiety or depression Skin: No rash or itch Physical Exam Physical Exam: General: awake, alert, no apparent distress Head: Normocephalic, atraumatic ENT: PERRL, EOMI, no pharyngeal exudate, mucous membranes moist Chest: Clear to auscultation, on room air, no adventitious breath sounds Cardiac: Regular rate and rhythm, no murmur, no JVD, normal peripheral pulses, g ood capillary refill Abdominal: NABS x 4 quadrants, soft, nontender to palpation, no rebound, guarding or tenderness Extremities: Normal inspection, no peripheral edema or erythema, calfs nontender to palpation Psych: Normal mood and affect Neuro: AAO x 3, strength intact bilaterally and related 5/5, no motor deficits, speech is clear, no peripheral sensory deficits Results & Data Vital Signs (Past 12 Hours) Vital Signs Temp Pulse Resp BP Pulse Ox 03/01/19 15:30 140/75 03/01/19 15:20 85 15 98 03/01/19 15:10 76 19 97 03/01/19 15:00 71 19 97 03/01/19 14:50 76 16 96 03/01/19 14:40 80 18 96 03/01/19 14:30 78 17 98 03/01/19 14:20 76 17 97 03/01/19 14:10 72 18 97 03/01/19 14:00 78 16 98 03/01/19 13:50 74 18 98 03/01/19 13:40 72 18 97 03/01/19 13:30 81 15 97 03/01/19 13:20 67 19 97 03/01/19 13:10 67 20 96 03/01/19 13:00 68 19 97 03/01/19 12:50 70 17 97 03/01/19 12:40 70 21 98 03/01/19 12:30 69 16 99 03/01/19 12:20 69 19 98 03/01/19 12:10 68 18 100 03/01/19 12:00 62 16 98 03/01/19 11:50 65 16 96 03/01/19 11:40 69 16 98 03/01/19 11:30 65 14 98 03/01/19 11:21 72 17 96 03/01/19 11:15 37.0 C 78 18 178/104 H 98 03/01/19 11:14 80 20 178/104 H 97 Diagnostic Findings SINGLE VIEW CHEST CLINICAL HISTORY: Atypical chest pain. FINDINGS: An AP, portable, upright chest radiograph is obtained. No prior studies are available for comparison at the time of dictation. The examination is degraded by portable technique and patient rotation. The cardiomediastinal silhouette is unremarkable noting atherosclerotic calcification of the thoracic aorta. The lungs and pleural spaces are clear. No pneumothorax is seen. The skeletal structures are osteopenic. The bony thorax is grossly intact. IMPRESSION: No active disease in the chest. ECG Additional Comments: 01-MAR-2019 11:53:37 [facility]-EDSTAT ROUTINE RETRIEVAL Normal sinus rhythm with sinus arrhythmia Left axis deviation Right bundle branch block Abnormal ECG When compared with ECG of 28-DEC-2018 06:56, T wave inversion now evident in Anterior leads Confirmed by Santiago Bonilla ([id number]) on 03/01/2019 4:36:11 PM 25mm/s 10mm/mV 150Hz 9.0.8 12SL 241 ROSY: 3 Confirmed By: Santiago Thao. rate 67 BPM WA interval 168 ms QRS duration 138 ms QT/QTc 440/464 ms P-R-T axes 45 -44 -11 Code Status & VTE Plan VTE Prophylaxis Plan VTE Prophylaxis will be ordered: Yes Supervising Physician Co-Signing Physician Notes I supervised Susan Fitzgerald PA-C on this patient's care. I examined the patient today independently of her. I discussed the plan of care with her with the plan being as written in her note except for any following changes/exc eptions: None. 83-year-old female with a history of hypertension who presents with abdominal pain nausea, vomiting, and diarrhea. She initially went to a pot luck approximately 2 weeks ago where she may have eaten some spoiled food. She reports immediate nausea and vomiting after eating the food. However, she has had continued abdominal bloating, abdominal pain, and now has new onset postprandial diarrhea. The patient has a soft abdominal exam with minimal tenderness. Bowel sounds are hypoactive. Patient refused CT abdomen pelvis for the ED provider, agreed to undergo it after talking with Rachna Quijanoemilie, but now again is refusing with my discussion with her today. We will treat with antibiotics, get stool cultures and C. difficile testing as able, and work with the patient is much as she is willing. PG Care Time/CCT Total # of Minutes Spent Total Time Spent with Patient: Total time spent is greater than 50% in coordination of care (as documented) at patient's floor/unit and/or counseling patient:
--- NOTE | 2019-03-01 18:31 | Emergency Department Note ---
Entered by Marianna Martino acting as a scribe for History of Present Illness General Chief complaint: Illness Time Seen by Provider: 03/01/19 11:22 Source: patient History of Present Illness Provider complaint: illness Onset (ago): day(s) 5 Pain Consistency: + other (episode) Maximum Pain Intensity: 6 Quality: + other (illness) Associated symptoms: + denies other symptoms (congestion, dysuria), + chest pain (intermittent and lasts about 10 minutes ), + nausea/vomiting and + other (bloated, diarrhea, last episode of diarrhea this morning after bite of donut, everything she eats goes right through her ); no cough, no fever/chills and no shortness of breath The patient is an 83 year old female who presents to the ED with complaints of an episode of an illness that began 5 days ago. The patient states that she has had diarrhea, vomiting, loss of appetite and bloating. The patient notes that she has also had intermittent chest pain that lasts for about 10 minutes. The patient states that her last episode of diarrhea was this morning after eating a bite of a donut. The patient states that everything she eats goes right through her. The patient denies fever, chills, cough, congestion, shortness of breath and dysuria. Home Medications Home Medications Medication Instructions Recorded Confirmed Type vitamin E 400 unit PO DAILY 12/26/18 03/01/19 History amlodipine [Norvasc] 5 mg PO QPM #30 tab 12/28/18 03/01/19 Rx metoprolol succinate 25 mg PO QPM #30 tab 12/28/18 03/01/19 Rx lisinopril-hydrochlorothiazide 1 tab PO DAILY 03/01/19 03/01/19 History lisinopril-hydrochlorothiazide 1 tab PO DAILY 03/01/19 03/01/19 History lisinopril-hydrochlorothiazide 1 tab PO DAILY 03/01/19 03/01/19 History ondansetron 4 mg PO Q6 PRN 03/01/19 03/01/19 History polyethylene glycol 3350 [Miralax] 1 packet PO DAILY PRN 03/01/19 03/01/19 History sertraline 50 mg PO DAILY 03/01/19 03/01/19 History Allergies Allergy/AdvReac Type Severity Reaction Status Date / Time No Known Allergies Allergy Unverified 03/01/19 12:26 Past Med/Surg History Medical History Hypertension (Chronic) Social History Preferred Language: Kiswahili Communication Ability: Effective 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 and A total of 10 systems reviewed and were otherwise negative Physical Exam Vital Signs Vital Signs - 24 hr 03/01/19 11:14 03/01/19 11:15 03/01/19 11:21 Temperature 37.0 C Temperature Source Oral Sepsis Recent Fever Within 48 Hours No Sepsis Action Taken by Nursing No Action Required Pulse Rate 80 78 72 Pulse Rate from SpO2 Sensor 79 72 Pulse Rhythm Regular Pulse Strength Normal Respiratory Rate 20 18 17 Respiratory Effort / Characteristics Non-Labored Respiratory Depth Normal Respiratory Pattern Regular Blood Pressure 178/104 H 178/104 H Blood Pressure Mean 128 128 Blood Pressure Position Lying Pulse Oximetry 97 98 96 Oxygen Delivery Method Room Air 03/01/19 11:26 03/01/19 11:30 03/01/19 11:40 Temperature Temperature Source Sepsis Recent Fever Within 48 Hours Sepsis Action Taken by Nursing Pulse Rate 65 69 Pulse Rate from SpO2 Sensor 68 70 Pulse Rhythm Pulse Strength Respiratory Rate 14 16 Respiratory Effort / Characteristics Respiratory Depth Respiratory Pattern Blood Pressure Blood Pressure Mean Blood Pressure Position Pulse Oximetry 98 98 Oxygen Delivery Method Room Air 03/01/19 11:50 03/01/19 12:00 03/01/19 12:10 Temperature Temperature Source Sepsis Recent Fever Within 48 Hours Sepsis Action Taken by Nursing Pulse Rate 65 62 68 Pulse Rate from SpO2 Sensor 64 70 67 Pulse Rhythm Pulse Strength Respiratory Rate 16 16 18 Respiratory Effort / Characteristics Respiratory Depth Respiratory Pattern Blood Pressure Blood Pressure Mean Blood Pressure Position Pulse Oximetry 96 98 100 Oxygen Delivery Method 03/01/19 12:20 03/01/19 12:30 03/01/19 12:40 Temperature Temperature Source Sepsis Recent Fever Within 48 Hours Sepsis Action Taken by Nursing Pulse Rate 69 69 70 Pulse Rate from SpO2 Sensor 71 69 70 Pulse Rhythm Pulse Strength Respiratory Rate 19 16 21 Respiratory Effort / Characteristics Respiratory Depth Respiratory Pattern Blood Pressure Blood Pressure Mean Blood Pressure Position Pulse Oximetry 98 99 98 Oxygen Delivery Method 03/01/19 12:50 03/01/19 13:00 03/01/19 13:10 Temperature Temperature Source Sepsis Recent Fever Within 48 Hours Sepsis Action Taken by Nursing Pulse Rate 70 68 67 Pulse Rate from SpO2 Sensor 69 69 68 Pulse Rhythm Pulse Strength Respiratory Rate 17 19 20 Respiratory Effort / Characteristics Respiratory Depth Respiratory Pattern Blood Pressure Blood Pressure Mean Blood Pressure Position Pulse Oximetry 97 97 96 Oxygen Delivery Method 03/01/19 13:20 03/01/19 13:30 03/01/19 13:40 Temperature Temperature Source Sepsis Recent Fever Within 48 Hours Sepsis Action Taken by Nursing Pulse Rate 67 81 72 Pulse Rate from SpO2 Sensor 66 74 74 Pulse Rhythm Pulse Strength Respiratory Rate 19 15 18 Respiratory Effort / Characteristics Respiratory Depth Respiratory Pattern Blood Pressure Blood Pressure Mean Blood Pressure Position Pulse Oximetry 97 97 97 Oxygen Delivery Method 03/01/19 13:50 03/01/19 14:00 03/01/19 14:10 Temperature Temperature Source Sepsis Recent Fever Within 48 Hours Sepsis Action Taken by Nursing Pulse Rate 74 78 72 Pulse Rate from SpO2 Sensor 75 78 73 Pulse Rhythm Pulse Strength Respiratory Rate 18 16 18 Respiratory Effort / Characteristics Respiratory Depth Respiratory Pattern Blood Pressure Blood Pressure Mean Blood Pressure Position Pulse Oximetry 98 98 97 Oxygen Delivery Method 03/01/19 14:20 03/01/19 14:30 03/01/19 14:40 Temperature Temperature Source Sepsis Recent Fever Within 48 Hours Sepsis Action Taken by Nursing Pulse Rate 76 78 80 Pulse Rate from SpO2 Sensor 73 78 80 Pulse Rhythm Pulse Strength Respiratory Rate 17 17 18 Respiratory Effort / Characteristics Respiratory Depth Respiratory Pattern Blood Pressure Blood Pressure Mean Blood Pressure Position Pulse Oximetry 97 98 96 Oxygen Delivery Method 03/01/19 14:50 03/01/19 15:00 03/01/19 15:10 Temperature Temperature Source Sepsis Recent Fever Within 48 Hours Sepsis Action Taken by Nursing Pulse Rate 76 71 76 Pulse Rate from SpO2 Sensor 77 71 78 Pulse Rhythm Pulse Strength Respiratory Rate 16 19 19 Respiratory Effort / Characteristics Respiratory Depth Respiratory Pattern Blood Pressure Blood Pressure Mean Blood Pressure Position Pulse Oximetry 96 97 97 Oxygen Delivery Method 03/01/19 15:20 03/01/19 15:30 03/01/19 15:57 Temperature Temperature Source Sepsis Recent Fever Within 48 Hours Sepsis Action Taken by Nursing Pulse Rate 85 97 H Pulse Rate from SpO2 Sensor 86 97 H Pulse Rhythm Pulse Strength Respiratory Rate 15 18 Respiratory Effort / Characteristics Respiratory Depth Respiratory Pattern Blood Pressure 140/75 108/92 Blood Pressure Mean 96 97 Blood Pressure Position Pulse Oximetry 98 96 Oxygen Delivery Method 03/01/19 16:00 03/01/19 16:01 03/01/19 16:10 Temperature Temperature Source Sepsis Recent Fever Within 48 Hours Sepsis Action Taken by Nursing Pulse Rate 92 H 90 87 Pulse Rate from SpO2 Sensor 92 H 90 88 Pulse Rhythm Pulse Strength Respiratory Rate 18 18 17 Respiratory Effort / Characteristics Respiratory Depth Respiratory Pattern Blood Pressure 141/81 H Blood Pressure Mean 101 Blood Pressure Position Pulse Oximetry 97 96 96 Oxygen Delivery Method GENERAL: Awake, alert, fatigued-appearing, in no distress HENT: Normocephalic, atraumatic. Oropharynx with dry mucous membranes and otherwise unremarkable. EYES: Normal conjunctiva. Sclera non-icteric. NECK: Supple. No nuchal rigidity. FROM. No JVD. RESPIRATORY: Clear to auscultation bilaterally. CARDIAC: Regular rate, normal rhythm. Extremities warm and well perfused. Pulses equal. ABDOMEN: Generalized abdominal discomfort. Soft, non-distended. No rebound or guarding. No masses. RECTAL: Deferred. MUSCULOSKELETAL: Chest examination reveals no tenderness. The back is symmetrical on inspection without obvious abnormality. There is no CVA tendern ess to palpation. No joint edema. LOWER EXTREMITIES: Calves are equal size bilaterally and non-tender. No edema. No discoloration. NEURO: Normal sensorium. No sensory or motor deficits noted. SKIN: No rash or jaundice noted. Course 1125: Past medical records reviewed. The patient was evaluated in room C3. A complete history and physical exam was performed. 1529: I discussed the patient's case with Susan TILLMAN PA-C. She will come and evaluated the patient for admission. At this time, she is unsure whether or not the patient will be admitted. 1548: The patient is refusing the CT because she states that she does not want to know what is wrong with her. 1612: I discussed the patient's case with Celina FERRELL PA-C. She suggests IV Lasix now and advises the patient to follow up with her tomorrow morning. 1625: I discussed the patient's case with Susan TILLMAN PA-C. She will evaluate the patient for further management. Consultations Consultation #1: I [facility] the [facility] She will come and evaluated the patient for admission. At this time, she is unsure whether or not the patient will be admitted. Time: 15:29 Consultation #2: I discussed the patient's case with Celina FERRELL PA-C. She suggests IV Lasix now and advises the patient to follow up with her tomorrow morning. Time: 16:12 Consultation #3: I discussed the patient's case with [facility]. She will evaluate the patient for further management. Time: 16:25 Administered Medications Lactated Ringer's (Lr) 1,000 mls @ 80 mls/hr IV .[id number] GERA Stop: 03/31/19 21:59 Last Admin: 03/01/19 22:16 Dose: 80 mls/hr Documented by: [id number] Ioversol (Optiray 320 100ml) 94 ml IV ONCE PRN PRN Reason: Interaction Checking Stop: 03/05/19 20:13 Last Admin: 03/01/19 20:15 Dose: 94 ml Documented by: [id number] Discontinued Medications Sodium Chloride (Nss) 500 mls @ 999 mls/hr IV .Q31M GERA Stop: 03/01/19 12:00 Last Infusion: 03/01/19 12:43 Dose: 0 mls/hr Documented by: [id number] Admin: 03/01/19 11:46 Dose: 999 mls/hr Documented by: [id number] Acetaminophen (Ofirmev) 1,000 mg in 100 mls @ 400 mls/hr IV NOW STA Stop: 03/01/19 11:42 Last Infusion: 03/01/19 12:43 Dose: 0 mls/hr Documented by: [id number] Admin: 03/01/19 11:49 Dose: 400 mls/hr Documented by: [id number] Famotidine (Pepcid 20mg Iv Push) 20 mg in 5 mls @ 2.5 mls/min IV NOW STA Stop: 03/01/19 11:29 Last Admin: 03/01/19 11:50 Dose: 2.5 mls/min Documented by: [id number] Sodium Chloride (Nss) 500 mls @ 999 mls/hr IV .Q31M ONE Stop: 03/01/19 15:34 Last Infusion: 03/01/19 19:50 Dose: 0 mls/hr Documented by: [id number] Admin: 03/01/19 16:30 Dose: 999 mls/hr Documented by: [id number] Potassium Phosphate 9 mmol/ (Sodium Chloride) 253 mls @ 88 mls/hr IV NOW STA Stop: 03/01/19 18:22 Last Infusion: 03/01/19 19:50 Dose: 0 mls/hr Documented by: [id number] Admin: 03/01/19 16:30 Dose: 88 mls/hr Documented by: [id number] Ciprofloxacin (Cipro) 400 mg in 200 mls @ 100 mls/hr IV Q12H GERA; Protocol Stop: 03/11/19 19:29 Last Infusion: 03/01/19 22:13 Dose: 0 mls/hr Documented by: [id number] Admin: 03/01/19 20:34 Dose: 100 mls/hr Documented by: [id number] Metronidazole (Flagyl) 500 mg in 100 mls @ 100 mls/hr IV Q8H GERA; Protocol Stop: 03/11/19 19:29 Last Infusion: 03/01/19 22:13 Dose: 0 mls/hr Documented by: [id number] Admin: 03/01/19 20:34 Dose: 100 mls/hr Documented by: [id number] Piperacillin Sod/Tazobactam (Sod 4.5 gm/ Dextrose) 120 mls @ 200 mls/hr IV NOW ONE; Protocol Stop: 03/01/19 22:35 Last Admin: 03/01/19 22:16 Dose: 200 mls/hr Documented by: [id number] Potassium Phosphate (Phospha 250 Neutral 155-852-130 Mg) 2 tab PO NOW STA Stop: 03/01/19 15:28 Last Admin: 03/01/19 16:30 Dose: 2 tab Documented by: [id number] Potassium Phosphate (Potassium Phosphate Replace) 9 mmol IV NOW STA Stop: 03/01/19 15:28 Last Admin: 03/01/19 16:30 Dose: Not Given Documented by: [id number] Medical Decision Making Differential Diagnosis Differential diagnosis: Etiologies such as biliary colic, cholecystitis, hepatitis, perihepatitis, pancreatitis, cardiac disease, pancreatitis, gastritis, peptic ulcer disease, appendicitis, ovarian cyst, ovarian torsion, ectopic , pelvic inflammatory disease, cystitis, diverticulitis, mesenteric ischemia, inflammatory bowel disease, ileus, bowel obstruction, aortic pathology, shingles, as well as others were considered. Medical Records Attestation: I reviewed the patient's medical records. Home Medications Current Medication List: was personally reviewed by me Laboratory Data Attestation: I reviewed the patient's lab results. Result diagrams: 03/01/19 12:16 03/01/19 12:16 Lab Results 03/01/19 03/01/19 03/01/19 Range/Units 12:16 12:16 15:30 WBC 29.01 H (4.8-10.8) K/uL RBC 5.05 (4.2-5.4) M/uL Hgb 15.2 (12.0-16.0) g/dL Hct 42.4 (37-47) % MCV 84.0 (80-100) fL MCH 30.1 (25-34) pg MCHC 35.8 (32-36) g/dL RDW Std Deviation 43.9 (36.4-46.3) fL RDW Coeff of Camille 14.3 (11.5-14.5) % Plt Count 237 (130-400) K/uL MPV 10.8 H (7.4-10.4) fL Immature Gran % (Auto) 0.5 % Neut % (Auto) 86.8 % Lymph % (Auto) 7.0 % [place] % (Auto) 5.6 % Eos % (Auto) 0.0 % Baso % (Auto) 0.1 % Immature Gran # (Auto) 0.14 H (0.00-0.02) K/uL Neut # (Auto) 25.21 H (1.4-6.5) K/uL Lymph # (Auto) 2.02 (1.2-3.4) K/uL [place] # (Auto) 1.62 H (0.11-0.59) K/uL Eos # (Auto) 0.00 (0-0.5) K/uL Baso # (Auto) 0.02 (0-0.2) K/uL Sodium 136 (136-145) mmol/L Potassium 3.5 (3.5-5.1) mmol/L Chloride 100 (98-107) mmol/L Carbon Dioxide 27 (21-32) mmol/L Anion Gap 9.0 (3-11) BUN 39 H (7-18) mg/dl Creatinine 1.02 (0.6-1.2) mg/dl Est Cr Clr Drug Dosing 43.2 ml/min Est GFR ( Amer) 59.3 Est GFR (Non-Af Amer) 51.2 BUN/Creatinine Ratio 37.7 H (10-20) Glucose 138 H (70-99) mg/dl Calcium 8.9 (8.5-10.1) mg/dl Phosphorus 1.8 L (2.5-4.9) mg/dl Magnesium 2.9 H (1.8-2.4) mg/dl Total Bilirubin 0.8 (0.2-1) mg/dl AST 43 H (15-37) U/L ALT 42 (12-78) U/L Alkaline Phosphatase 116 (45-117) U/L Troponin I < 0.015 (0-0.045) ng/ml Total Protein 7.8 (6.4-8.2) gm/dl Albumin 3.0 L (3.4-5.0) gm/dl Globulin 4.8 H (2.5-4.0) gm/dl Albumin/Globulin Ratio 0.6 L (0.9-2) Lipase 50 L (73-393) U/L TSH 0.464 (0.300-4.500) uIu/ml Specimen Hemolysis Urine Color Agustina Urine Appearance Turbid A (Clear) Urine pH 5.0 (4.5-7.5) Ur Specific [place] 1.037 H (1.000-1.030) Urine Protein 1+ H (Negative) Urine Glucose (UA) Trace H (Negative) Urine Ketones Trace H (Negative) Urine Blood Negative (Negative) Urine Nitrite Positive A (Negative) Urine Bilirubin Negative (Negative) Urine Urobilinogen Negative (Negative) Ur Leukocyte Esterase 1+ H (Negative) Urine WBC (Auto) >30 H (0-5) /hpf Urine RBC (Auto) 5-10 H (0-4) /hpf U Hyaline Cast (Auto) 10-30 H (0-5) /lpf U Epithel Cells (Auto) >30 H (0-5) /lpf Urine Bacteria (Auto) 1+ H (Negative) Imaging Data Radiologist's Impression: Radiology results as stated below per my review and the radiologist's interpretation: SINGLE VIEW CHEST CLINICAL HISTORY: Atypical chest pain. FINDINGS: An AP, portable, upright chest radiograph is obtained. No prior studies are available for comparison at the time of dictation. The examination is degraded by portable technique and patient rotation. The cardiomediastinal silhouette is unremarkable noting atherosclerotic calcification of the thoracic aorta. The lungs and pleural spaces are clear. No pneumothorax is seen. The skeletal structures are osteopenic. The bony thorax is grossly intact. IMPRESSION: No active disease in the chest. Electronically signed by: Wes Luo M.D. 03/01/2019 11:42 AM ECG Data Attestation: I personally reviewed and interpreted this ECG as follows: Indication: weakness Rate (beats per minute): 67 Rhythm: sinus with SA Findings: + T-wave inversion (anteriorly); no ST depression, no ST elevation and no acute ischemic change Blood Pressure Blood Pressure Findings: Normal blood pressure Blood Pressure Disposition: did not require urgent referral MDM Narrative The patient is a pleasant 83-year-old woman with a past medical history of hypertension, hyperlipidemia who presents emergency department with generalized weakness, nausea, vomiting, diarrhea and generalized abdominal pain per hpi. Arrival patient fatigued appearing but no acute distress, afebrile stable vital signs. The patient appears clinically dry. She exhibits no focal neural deficits. She has generalized abdominal discomfort without discrete tenderness. EKG without overt acute ischemia. Chest x-ray negative for acute process. WBC 29K increased from 7K in December. WBC and platelets within normal limits. Chemistry without acidosis. BUN/creatinine >30 consistent with the patient's clinically dry appearance. Phosphorus 1.8 with repletion provided. Troponin negative. CT abdomen pelvis was ordered upon arrival help patient repeatedly declined the study as she explained to me that she "is 83 and would not want to know what is in there as she does not want anything done". I did explain the value of the study to help inform any treatment with antibiotics for possible infection given her high white blood cell count. However the patient continued to be adamant that she did not want this study. She was however agreeable with admission. UA was ordered on arrival but still pending at this time however given the patient's leukocytosis and symptoms of generalized weakness with dehydration reasonable to proceed with admission process.. Case was discussed with MARIAELENA Burger PA-C, who will evaluate the patient for admission. UA consistent with UTI. Admitting team providing orders for antibiotics. Of note, after admission order placed I was informed by nursing staff that the patient had walked up to the nurses counter and though fell backwards after losing her balance. I reexamined the patient and she had full range of motion of bilateral upper and lower extremities without tenderness. No midline te nderness or step-offs to the CTL spine. No head strike or LOC. Admitting team was updated on this fall. Impression & Plan Dehydration, UTI (urinary tract infection), Leukocytosis, Hypophosphatemia Discharge Plan Visit Data *Final* Discharge Date/Time: 03/01/19 17:42 Chief Complaint: Illness ED Provider: Tyler Moy Discharge Problem: Dehydration, UTI (urinary tract infection), Leukocytosis, Hypophosphatemia Patient Disposition: Admitted As Inpatient Discharge Instructions Interventions: ED Discharge Assessment Last Done: 03/01/19 17:42 Discharge Problem: UTI (urinary tract infection) Qualifiers: Urinary tract infection type: site unspecified Hematuria presence: without hematuria Qualified Code(s): N39.0 - Urinary tract infection, site not specified Leukocytosis Qualifiers: Leukocytosis type: unspecified Qualified Code(s): D72.829 - Elevated white blood cell count, unspecified The scribe's documentation has been prepared under my direction and personally reviewed by me in its entirety. I confirm that the note above accurately reflects all work, treatment, procedures, and medical decision making performed by me.
[2019-03-01] MEDS ORDERED: POLYETHYLENE (MIRALAX) 17 GM PACK PO PRN (19:04)
[2019-03-01] MEDS ORDERED: ONDANSETRON 4 MG OD TAB PO PRN (19:04)
[2019-03-01] MEDS ORDERED: metroNIDAZOLE 500 MG/100 ML BAG IV SCH (19:30)
[2019-03-01] MEDS ORDERED: CIPROFLOXACIN 400 MG/200 ML BAG IV SCH (19:30)
[2019-03-01] MEDS ORDERED: IOVERSOL 100ml IV PRN (20:14)
[2019-03-01 20:18] LABS: Partial Thromboplastin Time 27.2 Seconds (21.0-31.0); Prothrombin Time 10.3 Seconds (9.0-12.0)
--- NOTE | 2019-03-01 20:38 | CT Scan Report ---
CT abd pelvis IV con only CT DOSE: 1145.92 mGy.cm HISTORY: Pain. Nausea. mid abdominal pain, n/v/d TECHNIQUE: Multiaxial CT images of the abdomen and pelvis were performed following the use of intrave nous contrast. A dose lowering technique was utilized adhering to the principles of ALARA. COMPARISON STUDY: None. FINDINGS: Lung bases are clear. Liver spleen and pancreas are unremarkable. Prior cholecystectomy. Infiltrative process in the anterior to the abdominal aorta proximally. This contains multiple air bu bbles. The infiltrative change surrounds celiac axis and superior mesenteric artery at its origin. A small air bubble is identified immediately posterior to the gastroesophageal junction. It is posterio r to the third portion of the duodenal sweep. Maximum overall dimensions are approximately 8 x 4 cm. There is a 2 cm fluid pocket at the most anterior aspect of this process. This potentially represents an air containing phlegmon secondary to focal perforation of the gastroes ophageal junction or a component of the duodenal sweep. A well-defined drainable collection is seen. Remainder of bowel pattern is unremarkable. There is a fibroid type uterus. Bladder is midline. There is no significant free fluid within the pelvic cul-de-sac. There are findings of chronic sigmoid div erticulosis. There is no evidence for acute diverticulitis. IMPRESSION: 1. Infiltrative changes of the retroperitoneum extending between the gastroesophageal junction and th ird portion of duodenal sweep. This extends over maximum dimensions of 8 x 4 cm 2. This contains a significant component of air and potentially relates to a perforated viscus, possi kailyn at the gastroesophageal junction or third portion of duodenal sweep. 3. The bulk of this infiltrative change does not contain fluid and therefore is consistent with that of a developing phlegmon. 4. Remainder the study is remarkable for uterine fibroids 5. Nonobstructive bowel pattern. The above report was generated using voice recognition software. It may contain grammatical, syntax or spelling errors. Electronically signed by: Cody Kaufman M.D. 03/01/2019 8:36 PM
[2019-03-01] MEDS ORDERED: PIPERACILL/TAZOBAC CONSULT ACTIVE PRN (21:42)
[2019-03-01] MEDS ORDERED: PIPERACILLIN/TAZOBACTAM 3.375 GM in DEXTROSE 5% 100 ML IV SCH (21:45)
[2019-03-01] MEDS ORDERED: LACTATED RINGER'S 1,000 ML IV SCH (22:00)
[2019-03-01] MEDS ORDERED: ACETAMINOPHEN 65 ML IV PRN (22:00)
[2019-03-01] MEDS ORDERED: PIPERACILLIN/TAZOBACTAM 4.5 GM in DEXTROSE 5% 100 ML IV ONE (22:00)
--- NOTE | 2019-03-01 22:04 | Progress Note ---
Date of Service March 01, 2019 I was informed around 8:45 PM this evening that the patient's CT abdomen and pelvis was concerning for a gastric perforation. On brief review of the chart, patient was admitted earlier today after a week's worth of nausea, vomiting, and diarrhea. Working diagnosis was gastroenteritis along with UTI. For this she was started on IV Cipro and Flagyl. Patient apparently initially refused a CT scan but ultimately agreed to it after discussing the scan with her bedside nurse on the lyon. The radiology read mentions concerns for perforated viscus, possibly at the gastroesophageal junction or third portion of duodenal sweep (please see full report). I discussed the case with the on-call general surgeon, Dr. Yousif. He stated based on the likely location of the perforation that the patient should be transferred to a higher level of care for surgical evaluation. I went up to speak with the patient to discuss these findings with her. We discussed that her condition is more severe than a routine stomach infection or stomach flu. Because of the likely hole in her stomach she is at risk for getting very sick, getting a generalized infection, and potentially dying from such an infection. We discussed the need for her to have an urgent surgery evaluation to hopefully fix this. On hearing this, the patient immediately stated that she did not want to have any surgery. She stated that she hoped her current abdominal pain could be fixed with something besides surgery. When asked why she did not want to have surgery, she repeated simply that she did not. When asked what the result of her not having surgery would be, she said "I would get sick". When once again she was told that it would likely be a very s evere leading to her , patient said that she was "okay" with that. I then asked her if she had any family nearby, to which she said not really but that she has a sister that is also in her 80s but has multiple medical problems. She specifically said that I should not call her sister to discuss this with her. At the time of this discussion, patient knew her name, date of , roughly the date (February 23, 2019), that she was in [facility], and that she is here to be evaluated for her stomach pain. This entire conversation was witnessed by the patient's lyon nurse at bedside. Finally, I asked if we could do anything to make her more comfortable at the moment. Patient requested a "cold glass of water". We then discussed that she cannot have anything to eat or drink at all right now, as there is concern she actually has a real hole in her stomach. Vitals as are below. Patient appears mildly uncomfortable but is able to move around rather easily. Does not appear acutely toxic. Plan: - I discussed her case with the patient's nurse and the floor nursing grain and yeast plants supervisor at the nursing station. Both of them will speak with the patient separately and see if they can convince her to be transferred tonight for further care. - Discussed case with Dr. Tang. At present, patient does appear lucid and able to make her own decisions, though they may be unwise. - For now, we will make her n.p.o. and add IV fluids. Stopped her Cipro and Flagyl. Started Zosyn IV every 6 hours. Held her p.o. medications. Can provide her IV Tylenol and Zofran for pain and nausea as needed. Will consult palliative care as well. - Hopefully patient will change her mind about transfer tonight for further surgical evaluation. If not, will continue to monitor and have her primary team in the morning re-engage. Jorge Luis Luther, PGY3 Overnight call Results & Data Vital Signs (Past 12 Hours) Vital Signs Temp Pulse Pulse Resp BP BP Pulse Ox 03/01/19 19:10 36.9 C 90 18 155/76 H 97 03/01/19 17:40 72 16 03/01/19 17:30 89 24 141/90 H 03/01/19 17:20 82 15 03/01/19 17:10 67 17 03/01/19 17:00 76 21 159/93 H 03/01/19 16:50 83 17 03/01/19 16:40 79 18 03/01/19 16:30 81 18 149/90 H 03/01/19 16:20 87 17 95 03/01/19 16:10 87 17 96 03/01/19 16:01 90 18 141/81 H 96 03/01/19 16:00 92 H 18 97 03/01/19 15:57 97 H 18 108/92 96 03/01/19 15:30 140/75 03/01/19 15:20 85 15 98 03/01/19 15:10 76 19 97 03/01/19 15:00 71 19 97 03/01/19 14:50 76 16 96 03/01/19 14:40 80 18 96 03/01/19 14:30 78 17 98 03/01/19 14:20 76 17 97 03/01/19 14:10 72 18 97 03/01/19 14:00 78 16 98 03/01/19 13:50 74 18 98 03/01/19 13:40 72 18 97 03/01/19 13:30 81 15 97 03/01/19 13:20 67 19 97 03/01/19 13:10 67 20 96 03/01/19 13:00 68 19 97 03/01/19 12:50 70 17 97 03/01/19 12:40 70 21 98 03/01/19 12:30 69 16 99 03/01/19 12:20 69 19 98 03/01/19 12:10 68 18 100 03/01/19 12:00 62 16 98 03/01/19 11:50 65 16 96 03/01/19 11:40 69 16 98 03/01/19 11:30 65 14 98 03/01/19 11:21 72 17 96 03/01/19 11:15 37.0 C 78 18 178/104 H 98 03/01/19 11:14 80 20 178/104 H 97
[2019-03-02] MEDS ORDERED: PIPERACILLIN/TAZOBACTAM 4.5 GM in DEXTROSE 5% 100 ML IV SCH (04:00)
[2019-03-02] MEDS ORDERED: TOCOPHERYL, DL-ALPHA 400 UNITS CAP PO SCH (09:00)
[2019-03-02] MEDS ORDERED: ENOXAPARIN INJ 40 MG/0.4 ML SYR SQ SCH (09:00)
[2019-03-02] MEDS ORDERED: SERTRALINE HCL 50 MG TABLET PO SCH (09:00)
--- NOTE | 2019-03-02 15:00 | Palliative Care Progress Note ---
Date of Service March 02, 2019 Subjective Consult received today 03/02. Patient was transferred to tertiary care last night before consult completed.
--- NOTE | 2019-03-02 15:46 | Discharge Summary ---
Date of Service March 01, 2019 Admission HPI Per Admitting Provider This is an 83 yo F with PMHx of hypertensive urgency, HTN, obesity with BMI of 34.5, R eye cataract and visual disturbance at baseline, who presents with acute onset of worsening n/v/d x 1 week. She notes being at a picnic about 1 week ago and ate potato salad and beef out of a can, which may have been spoiled, as she vomited shortly after consuming these items. She has not been around any sick contacts otherwise. At the beginning of the week she vomited a few times, but now has more complaints regarding diarrhea. She admits to generalized abdominal soreness. Pt notes intermittent sweats and chills but has not taken her temperature. Her diet has been very poor in the past 3 days, being unable to tolerate anything except for small amounts of water. She was seen at the [facility] by a provider this morning, and was sent to the ER via ambulance. Principal Diagnosis GI perforation Discharge Exam Constitutional WD/WN, vitals as above Eyes EOM intact bilaterally; no conjunctival abnormality ENMT external ear and nose normal, oropharynx normal Neck trachea midline, no thyromegaly normal visual inspection Respiratory normal respiratory effort, lungs clear to auscultation no respiratory distress Cardiovascular RRR, no murmur, no edema Gastrointestinal (Abdomen) Inspection/Auscultation: + abdomen distended; + abnormal bowel sounds Percussion/Palpation: + abdomen tender and abdomen soft; no guarding and abdomen not rigid Musculoskeletal no cyanosis or clubbing, extremities motor strength 5/5 Skin no rashes, warm and dry Neurologic moves all extremities and awake Psychiatric Orientation: alert, oriented to person and cooperative Discharge Data Allergies Allergy/AdvReac Type Severity Reaction Status Date / Time No Known Allergies Allergy Unverified 03/01/19 12:26 Consultations 03/01/19 15:27 ED Decision to Admit Stat 03/01/19 16:22 Consult Case Management - Discharge Planning Routine 03/01/19 21:15 Burn CD for patient Stat 03/01/19 22:04 Consult Palliative Care Routine Ordered Studies 03/01/19 11:27 CT abd pelvis IV con only Stat Hospital Course (1) Gastroenteritis: CT was done in the evening which showed possible gastric perforation. She was life-flighted to [facility]. (2) UTI (urinary tract infection): - UA appears infected - Await UCx - Started on IV abx cipro which will likely cover - VSS - NSS for hydration as above (3) Hypertension: - Holding antihypertensives for now: lisinopril/HCTZ, metoprolol succinate, amlodipine (4) Fall: - Pt attempted to get up and walk to the nurses station while in the ER and fell onto her butt, she did not sustain any injury to the head, denies pain - Monitor - PT/OT consults - Walk with assistance of nursing (5) DVT prophylaxis: - teds Disposition: From home, lives alone, likely to be in the hospital for at least 2 days. Total Time Total Time Spent Total Time Spent (In Minutes): 60 Discharge Plan Discharge Items Patient Disposition: Transfer Acute Care Hospital Reason For Visit: UTI,INTRACTABLE N/V/D,GASTRITIS Follow-up/Referrals: PCP,NO [Primary Care Provider] - Addtl Provider Instructions: Prescriptions: No Action vitamin E 400 unit Capsule 400 unit PO DAILY RF: 0 amlodipine [Norvasc] 5 mg Tablet 5 mg PO QPM Qty: 30 RF: 0 metoprolol succinate 25 mg tablet extended release 24 hr 25 mg PO QPM Qty: 30 RF: 0 polyethylene glycol 3350 [Miralax] 17 gram Powder In Packet 1 packet PO DAILY PRN (Reason: Constipation) RF: 0 lisinopril-hydrochlorothiazide 10-12.5 mg tablet 1 tab PO DAILY RF: 0 lisinopril-hydrochlorothiazide 10-12.5 mg tablet 1 tab PO DAILY RF: 0 lisinopril-hydrochlorothiazide 10-12.5 mg tablet 1 tab PO DAILY RF: 0 ondansetron 4 mg tablet,disintegrating 4 mg PO Q6 PRN (Reason: Nausea) RF: 0 sertraline 50 mg tablet 50 mg PO DAILY RF: 0 Stand-Alone Forms: [facility] Admission Data Admit Date/Time: 03/01/19 16:18 Attending Provider: Dion Cardoso Admit Provider: Dion Cardoso Primary Care Provider: PCP,NO Other Providers: Dion Cardoso ; Makenzie Ferrari Service: Medical Other Interventions: Discharge Summary Assessment (RN) Last Done: 03/01/19 23:45 DC Date/Time DO NOT enter until pt leaves facility: 03/01/19 23:48
== END 2019-03-01 23:48 | disposition short-term general hospital (02) | DRG 392 ==
LOC: ED 11:10 → 4W 16:18